=== PATIENT | male | born 1955 | race Caucasian/White ===

== ENCOUNTER 2019-04-22 07:06 | Emergency (ER) | payer MEDICAID, OTHER ==
[~2019-04-22] VITALS: Ht 188 cm; Wt 100.9 kg
[~2019-04-22 07:06] MED LIST: CLOB15CR11 TOP; HYDR-4383 PO
[2019-04-22 07:36] VITALS: BP 136/92
[2019-04-22] MEDS ORDERED: LIDOcaine 1% w/epiNEPHrine 1:200,000 30ml vial SQ ONE (08:35)
[2019-04-22] MEDS ORDERED: BACDS PO (10:45)
== END 2019-04-22 10:56 | disposition home or self-care (01) ==
LOC: ER 07:08
DX: L02.413 Cutaneous abscess of right upper limb (principal); M70.21 Olecranon bursitis, right elbow; I10 Essential (primary) hypertension; G89.29 Other chronic pain; Z86.14 Personal history of Methicillin resistant Staphylococcus aureus infection; Z79.899 Other long term (current) drug therapy; Y93.89 Activity, other specified
CPT/HCPCS: 10061; 99284

== ENCOUNTER 2019-04-22 21:11 | Emergency (ER) | payer MEDICAID, OTHER ==
[~2019-04-22 21:11] MED LIST changes: +BACDS PO
--- NOTE | 2019-04-22 21:49 | NUR ---
Intake reports LBT. Call placed to number on file. Spoke with Shin. He stated he found some tape, and did not need to be seen. He further explained this was the only reason he came in. Encouraged him to return for further care PRN. Dr. Pascual informed.
== END 2019-04-22 21:38 | disposition left against medical advice (07) ==
LOC: ER 21:12
DX: L08.89 Other specified local infections of the skin and subcutaneous tissue (principal); Z53.21 Procedure and treatment not carried out due to patient leaving prior to being seen by health care provider; Z79.899 Other long term (current) drug therapy